=== PATIENT | male | born 1980 | race Caucasian/White ===

== ENCOUNTER 2025-03-23 08:51 | Outpatient (REF) | payer MEDICAID, SELFPAY ==
--- OUTSIDE RECORDS SUMMARY | 2025-03-20 14:00 | XMS_ITS | Encounter Summary ---
Author Organization [employer] Address [address] [facility] 7 [place] [address] Care Team Providers Care Fruit Inspector Name Role Phone Chris Hernandez CNP Primary Care Provider [phone] [phone] Reason for Referral * Consultation (Routine) - Pending Review Specialty Diagnoses / Procedures Referred By Paxton garcias Referred To Contact Gastroenterology Diagnoses Encounter for screening for malignant neoplasm of colon Chris Hernandez CNP [address] [place] [address] Phone: tel: fax: Referral ID Status Reason Start Date Expiration Date Visits Requested Visits Authorized [id number] Pending Review Specialty Services Required 03/20/2026 1 1 Encounter Details Date Type Department Care Team (Late st Contact Info) Description 03/20/2025 2:00 PM EDT Office Visit [facility] [address] [place] [address] Chris Hernandez CNP [address] [place] [address] Encounter for physical examination (Primary Dx); Chronic pain of both shoulders; Encounter for screening for malignant neoplasm of colon; Mild intermittent asthma without complication Social History Tobacco Use Types Packs/Day Years Used Date Smoking Tobacco: Every Day Cigarettes 2 32 Passive Smoke Exposure: Current Smokeless Tobacco: Never Tobacco Cessation:Ready to Q uit: Not Asked; Counseling Given: Not Answered Depression Answer Date Recorded Patient Health Questionnaire-9 Score 0 03/20/2025 Patient Health Questionnaire-9 Score 0 03/20/2025 Last PHQ-9: Questionnaire Data Not on file 1 Housing Stability Answer Date Recorded What is your housing situation today? I have adilene figueroa 03/12/[address] you li ve. Do you have problems with any of the following? None of the above 03/12/2025 Food Insecurity Answer Date Recorded Within the past 12 months, y ou worried that your food would run out before you got money to buy more: Never True 03/20/2025 Within the past 12 months,th e food you bought just didn't last and you didn't have enough money to get more: Never True Transportation Answer Date Recorded In the past 12 months, has l ack of transportation kept you from medical appts, meetings, work or from getting things needed for daily living? No 03/12/2025 Utilities Answer Date Recorded In the past 12 months, has t he electric, gas, oil or water company threatened to shut off services in your home? No 03/12/2025 Depression Answer Date Recorded Patient Health Questionnaire-2 Score 0 03/20/2025 Internet Access Answer Date Recorded Internet Access Q1 Yes 03/12/2025 Internet Access Q2 Not on file 03/12/2025 Sex and Gender Information Value Date Recorded Sex Assigned at Male 02/18/2025 9:37 AM EDT Legal Sex Male 9:36 AM EDT Gender Identity Male 03/20/2025 1:34 PM EDT Sexual Orientation Straight 03/20/2025 1: 34 PM EDT documented as of this encounter Last Filed Vital Signs Vital Sign Reading Time Taken Comments Blood Pressure 118/68 03/20/2025 2:01 PM EDT Pulse 70 03/20/2025 2:01 PM EDT Temperature 36.7 C (98.1 F) 03/20/2025 2:01 PM EDT Respiratory Rate 14 03/20/2025 2:01 PM EDT Oxygen Saturation 98% 03/20/2025 2:01 PM EDT Inhaled Oxygen Concentration - - Weight 113 kg (250 lb) 03/20/2025 2:01 PM EDT Height 169.9 cm (5' 6.88 ) 03/20/2025 2:01 PM ED T Body Mass Index 39.3 03/20/2025 2:01 PM EDT documented in this encounter Functional Status * Over the past 2 weeks, how often have you been bothered by any of the following problems? Question Answer Date of Assessment Author Patient Health Questionnaire -2 Score 0 03/20/2025 3:52 PM EDT Johnny Padilla MA * Little interest or pleasure in doing things Answer Date of Assessment Author Not at all 03/20/2025 3:52 PM EDT Bradley-Co Nani abebe MA * Feeling down, depressed, or hopeless Answer Date of Assessment Author Not at all 03/20/2025 3:52 PM EDT Bradley-Co Nani abebe MA * Trouble falling or staying asleep, or sleeping too much Answer Date of Assessment Author Not at all 03/20/2025 3:52 PM EDT Bradley-Co Nani abebe MA * Feeling tired or having little energy Answer Date of Assessment Author Not at all 03/20/2025 3:52 PM EDT Bradley-Co Nani abebe MA * Poor appetite or overeating Answer Date of Assessment Author Not at all 03/20/2025 3:52 PM EDT Bradley-Co Nani abebe MA * Feeling bad about yourself - or that you are a failure or have let yourself or your family down Answer Date of Assessment Author Not at all 03/20/2025 3:52 PM EDT Bradley-Co Nani abebe MA * Trouble concentrating on things, such as reading the newspaper or watching television Answer Date of Assessment Author Not at all 03/20/2025 3:52 PM EDT Bradley-Co Nani abebe MA * Moving or speaking so slowly that other people could have noticed? Or the opposite - being so fidgety or restless that you have been moving around a lot more than usual. Answer Date of Assessment Author Not at all 03/20/2025 3:52 PM EDT Bradley-Co Nani abebe MA * Thoughts that you would be better off or hurting yourself in some way Answer Date of Assessment Author Not at all 03/20/2025 3:52 PM EDT Bradley-Co Nani abebe MA * Patient Health Questionnaire-9 Score Answer Date of Assessment Author 0 03/20/2025 3:52 PM EDT Bradley-Co Nani abebe MA * Over the last 2 weeks, how often have you been bothered by any of the following problems? Question Answer Date of Assessment Author Feeling nervous, anxious, or on edge 0 03/20/2025 3:52 PM EDT Johnny Padilla MA Not being able to stop or control worrying 0 03/20/2025 3:52 PM EDT Johnny Padilla MA Worrying too much about different things 0 03/20/2025 3:52 PM EDT Johnny Padilla MA Trouble relaxing 0 03/20/2025 3:52 PM EDT Nani Orellana MA Being so restless that it is hard to sit still 0 03/20/2025 3:52 PM EDT Johnny Padilla MA Becoming easily annoyed or irritable 0 03/20/2025 3:52 PM EDT Johnny Padilla MA Feeling afraid as if somethi ng awful might happen 0 03/20/2025 3:52 PM EDT Johnny Padilla MA MARTHA-7 Total Score 0 03/20/2025 3:52 PM EDT Nani Padilla MA documented as of this encounter Progress Notes * Chris Hernandez CNP - 03/20/2025 2:00 PM EDT Subjective: Henry Thorne is a 45 y.o. male who presents to the office for a new patient visit. Previous PCP unknown. Interim History: -reports history of Hep C 8 years ago in which he was treated for. Current concerns: none Problem List[1] Surgical History[2] Family History[3] Social History Living situation: Lives with Employment/Education: not employed Substance use: -alcohol none -tobacco 2 PPD, not interested in quitting at this time. -opioids none Sexual activity: monogamous AFAB partner Mental health: No data recorded Allergies[4] Review of Systems Vitals: 03/20/25 1401 BP: 118/68 BP Location: Left arm Patient Position: Sitting BP Cuff Size: Large adult Pulse: 70 Resp: 14 Temp: 98.1 ??F (36.7 ??C) TempSrc: Oral SpO2: 98% Weight: 250 lb (113 kg) Height: 5' 6.88 (1.699 m) Physical Exam Vitals reviewed. Constitutional: General: He is not in acute distress. Appearance: Normal appearance. He is not ill-appearing, toxic-appearing or diaphoretic. HENT: Head: Normocephalic and atraumatic. Cardiovascular: Rate and Rhythm: Normal rate and regular rhythm. Pulses: Normal pulses. Heart sounds: Normal heart sounds. No murmur heard. No friction rub. No gallop. Pulmonary: Effort: Pulmonary effort is normal. No respiratory distress. Breath sounds: Normal breath sounds. No stridor. No wheezing, rhonchi or rales. Chest: Chest wall: No tenderness. Musculoskeletal: Right shoulder: Tenderness present. No swelling, deformity, effusion or laceration. Normal range ofmotion. Left shoulder: No swelling, deformity, effusion or laceration. Normal range of motion. Right lower leg: No edema. Left lower leg: No edema. Comments: Tenderness to palpation over R supraspinatus area ROM intact of both shoulders although reported pain with abduction Neurological: General: No focal deficit present. Mental Status: He is alert and oriented to person, place, and time. Mental status is at baseline. Psychiatric: Mood and Affect: Mood normal. Behavior: Behavior normal. Thought Content: Thought content normal. Judgment: Judgment normal. Assessment & Plan Encounter for physical examination 1. Anticipatory guidance discussed. Specific topics reviewed: drugs, ETOH, and tobacco, importance of regular dental care, importance of regular exercise, importance of varied diet, minimize junk food, and sex; STD and prevention as appropriate. 2. Age appropriate screenings discussed 3. Pt declines all due immunizations today Routine Screening and Health Maintenance Optometry: No placed appointment request today Dental: Yes ASCVD risk: 45 y.o. male smoker obese Lab Review: orders written for new lab studies as appropriate; see orders Routine Cancer Screening Colon CA: due Lung CA: will offer starting at age 50 PSA: not indicated at this time Orders: Hemoglobin A1c; Future Lipid Panel, Standard; Future CBC auto differential; Future Comprehensive Metabolic Panel; Future HIV-1/2 Antigen and Antibodies, Fourth Generation, with Reflexes; Future Chronic pain of both shoulders Pain more prevalent in R shoulder Likely rotator cuff tendinopathy (supraspinatus) based on PE and presenting symptoms Will obtain baseline XR of both shoulders Advised conservative therapy with nsaids, ice, heat,rest Offered PT, pt declined Orders: XR Shoulder 2+ Views Left; Future XR Shoulder 2+ Views Right; Future Encounter for screening for malignant neoplasm of colon Orders: Referral to Gastroenterology; Future Mild intermittent asthma without complication Encouraged smoking cessation Will send prescription for albuterol prn for SOB, wheezing Discussed instructions for use and advised pt to rtc if inhaler use exceeds 3x daily as symptoms not controlled. Orders: albuterol 108 (90 Base) MCG/ACT inhaler; Inhale 2 puffs every 4 (four) hours if needed for wheezing. Current Medications[5] Immunization History Administered Date(s) Administered Influenza, IIV3, injectable 03/26/2014, 05/24/2016 Pfizer Covid-19 Vaccine 12+ 02/20/2021, 03/13/2021 Tdap 05/24/2016 Follow up for new or worsening conditions. [1] There is no problem list on file for this patient. [2] No past surgical history on file. [3] Family History Problem Relation Name Age of Onset Diabetes Mother Diabetes Father [4] No Known Allergies [5] Current Outpatient Medications Medication Sig Dispense Refill albuterol 108 (90 Base) MCG/ACT inhaler Inhale 2 puffs every 4 (four) hours if needed for wheezing.18 g 0 No current facility-administered medications for this visit. documented in this encounter Plan of Treatment Scheduled Orders Name Type Priority Associated Diagnoses Orde r Schedule Hemoglobin A1c Lab Routine Encounter for physical examination Expected: 03/20/2025 (Approximate), Expires: 03/20/2026 Lipid Panel, Standard Lab Routine Encounter for physical examination Expected: 03/20/2025 (Approximate), Expires: 03/20/2026 CBC auto differential Lab Routine Encounter for physical examination Expected: 03/20/2025 (Approximate), Expires: 03/20/2026 Comprehensive Metabolic Panel Lab Routine Encounter for physical examination Expected: 03/20/2025 (Approximate), Expires: 03/20/2026 HIV-1/2 Antigen and Antibodies, Fourth Generation, with Reflexes Lab Routine Encounter for physical examination Expected: 03/20/2025 (Approximate), Expires: 03/20/2026 XR Shoulder 2+ Views Left Imaging Routine Chronic pain of both shoulders Expected: 03/20/2025, Expires: 03/20/2026 XR Shoulder 2+ Views Right Imaging Routine Chronic pain of both shoulders Expected: 03/20/2025, Expires: 03/20/2026 Scheduled Referrals Name Type Priority Associated Diagnoses Order Schedule Referral to Gastroenterology Outpatient Referral Routine Encounter for screening for malignant neoplasm of colon Expected: 03/20/2025 (Approximate), Expires: 03/20/2026 documented as of this encounter Visit Diagnoses Diagnosis Encounter for physical examination- Primary Chronic pain of both shoulders Encounter for screening for malignant neoplasm of colon Mild intermittent asthma without complication documented in this encounter Additional Health Concerns Assessment Noted Time PHQ-9 Depression Total Score: 0 03/20/20 3:52 PM EDT documented as of this encounter Care Teams Fruit Inspector Relationship Specialty Start Date End Date Chris Hernandez CNP [address] [place] [address] PCP - General Family Medicine 03/20/25 documented as of this encounter
--- OUTSIDE RECORDS SUMMARY | 2025-03-23 10:00 | XMS_ITS | Encounter Summary ---
Author Organization [facility] Address [address] [facility] 7[address] [place] [address] Care Team Providers Care Radio Electronics Technician Name Role Phone Chris Hernandez CNP Primary Care Provider [phone] Reason for Visit * Reason Onset Date Comments Appointment Request 02/18/2025 Encounter Details Date Type Department Care Team ([facility] st Contact Info) Description 02/18/2025 Telephone [facility] [address] [place], [place] [phone] Albin Alarcon MD [address] [place] [address] Appointment Request Social History Tobacco Use Types Packs/Day Years Used Date Smoking Tobacco: Never Assessed Sex and Gender Information Value Date Recorded Sex Assigned at Male 02/18/2025 9:37 AM EDT Legal Sex Male 9:36 AM EDT Gender Identity Male 03/20/2025 1:34 PM EDT Sexual Orientation Straight 03/20/2025 1: 34 PM EDT documented as of this encounter Miscellaneous Notes * Telephone Encounter - Sandra Maurer - 02/18/2025 9:40 AM EDT TC from caller requesting NEW PATIENT visit . DX : N/A Medical Concern: 4 y.o with out a doctor Insurance name : [employer] Location : [place] Demographic information updated documented in this encounter Plan of Treatment Not on file documented as of this encounter Visit Diagnoses Not on filedocumented in this encounter Care Teams Radio Electronics Technician Relationship Specialty Start Date End Date Chris Hernandez CNP [address] [place] [address] PCP - General Family Medicine 03/20/25 documented as of this encounter
--- OUTSIDE RECORDS SUMMARY | 2025-03-23 10:00 | XMS_ITS | Clinical Summary ---
Author Organization [employer] Address [address] [facility] [address] [place] [address] Care Team Providers Care Process Improvement Consultant Name Role Phone Chris Hernandez CNP Primary Care Provider [phone] Allergies No known active allergies Medications albuterol 108 (90 Base) MCG/ACT inhalerIndication s:Mild intermittent asthma without complication Inhale 2 puffs every 4 (four) hours if needed for wheezing. 18 g 03/20/2025 03/20/20 26 Active Active Problems No known active problems Encounters Date Type Department Care Team Description 03/20/2025 2:00 PM EDT Office Visit [facility] [address] [place] [address] Chris Hernandez CNP Encounter for physical examination (Primary Dx); Chronic pain of both shoulders; Encounter for screening for malignant neoplasm of colon; Mild intermittent asthma without complication 03/20/2025 Travel 03/19/2025 Telephone [facility] [address] [place] [address] Lashanda Adrian MA Chart Prep 03/12/2025 Patient Outreach [facility] [address] [place] [phone] Chris Hernandez CNP Care Coordination ([facility] outreach for SDOH housing search-LVM ) 03/12/2025 Patient Outreach [address] [address] Albin Alarcon MD Pre-visit Planning (SDOH screening positive and Tobacco screening positive) 02/18/[address] [address] Albin Alarcon MD Appointment Request from Last 3 Months Immunizations Immunization Administration Dates Next Due Influenza, IIV3, injectable 05/24/2016, 4 Tdap 05/24/2016 Family History Medical History Relation Name Comments Diabetes Father Diabetes Mother Relation Name Status Comments Father Mother Social History Tobacco Use Types Packs/Day Years [...] Orientation Straight 03/20/2025 1: 34 PM EDT Last Filed Vital Signs Vital Sign Reading [...] Mass Index 39.3 03/20/2025 2:01 PM EDT Plan of Treatment Health Maintenance Due Date Last Done Comments CT Colonography 1979 Colonoscopy 1979 Colorectal Cancer Screening 1979 FIT DNA/Cologuard 1979 FIT 1979 FOBT 1979 HIV Screening 1979 Lipid Panel 1979 Sigmoidoscopy 1979 Family Planning (PISQ) 1994 Hepatitis C Screening 1997 Hepatitis B Vaccines (1 of 3 - 19+ 3-dose series) 1998 Pneumococcal Vaccine: Pediatrics (0 to 5 Years) and At-Risk Patients (6 to 49) Years (1 of 2 - PCV) 1998 COVID-19 Vaccine (3 - 2024-2 6 season) 2025 03/13/2021, 02/20/2021 Influenza Vaccine (#1) 2025 6, 03/26/2014 Alcohol/Substance Use Screening 03/20/2026 03/20/2025 Depression Screening 03/20/2026 03/20/2025, 03/20/2025 Disability Screening 03/20/2026 03/20/2025 SDOH Screening 03/20/2026 03/20/2025 Tobacco Screening 03/20/2026 03/20/2025 DTaP/Tdap/Td Vaccines (2 - T d or Tdap) 05/24/2026 05/24/2016 Zoster Vaccines (1 of 2) 2029 RSV Patients and Patients Aged 60 years or older (1 - 1-dose 75+ series) 2054 HIB Vaccines Aged Out No longer eligi ble based on patient's age to complete this topic HPV Vaccines Aged Out No longer eligi ble based on patient's age to complete this topic Hepatitis A Vaccines Aged Out No long er eligible based on patient's age to complete this topic IPV Vaccines Aged Out No longer eligi ble based on patient's age to complete this topic Meningococcal B Vaccine Aged Out No l onger eligible based on patient's age to complete this topic Meningococcal Vaccine Aged Out No mis felicity eligible based on patient's age to complete this topic RSV under 20 months Aged Out No longe r eligible based on patient's age to complete this topic Rotavirus Vaccines Aged Out No longer eligible based on patient's age to complete this topic Insurance [employer] Care Teams Process Improvement Consultant Relationship Specialty Start Date End Date Chris Hernandez CNP [address] [place] [address] PCP - General Family Medicine 03/20/25
--- OUTSIDE RECORDS SUMMARY | 2025-03-23 10:01 | XMS_ITS | Encounter Summary ---
Author Organization [employer] Address [address] [facility] [address] [place] [address] Care Team Providers Care Bar Tender Name Role Phone Chris Hernandez CNP Primary Care Provider [phone] Encounter Details Date Type Department Care Team (Latest Contact Info) Description 03/20/2025 Travel Social History Tobacco Use Types Packs/Day Years Used Date Smoking Tobacco: Every Day Cigarettes 2 32 Passive Smoke Exposure: Current Smokeless Tobacco: Never Depression Answer Date Recorded Patient Health Questionnaire-9 [...] PM EDT documented as of this encounter Functional Status * Over the [...] Not at all 03/20/2025 3:52 PM EDT Mirna-Co Nani abebe MA * Trouble falling or [...] control worrying 0 03/20/2025 3:52 PM EDT Jonhny Padilla MA Worrying too much about different things 0 03/20/2025 3:52 PM EDT Johnny Padilla MA Trouble relaxing 0 03/20/2025 3:52 PM EDT D Nani Downey MA Being so restless that it is hard to sit still 0 03/20/2025 3:52 PM EDT Johnny Padilla MA Becoming easily annoyed or irritable 0 03/20/2025 3:52 PM EDT Mirna-Johnny Durbin MA Feeling afraid as if somethi ng awful might happen 0 03/20/2025 3:52 PM EDT Johnny Padilla MA MARTHA-7 Total Score 0 03/20/2025 3:52 PM EDT Nani Padilla MA documented as of this encounter Plan of Treatment Not on file documented as of this encounter Visit Diagnoses Not on filedocumented in this encounter Additional Health Concerns Assessment Noted Time PHQ-9 Depression Total Score: 0 03/20/20 3:52 PM EDT documented as of this encounter Care Teams Bar Tender Relationship Specialty Start Date End Date Chris Hernandez CNP [address] [place] [address] [place]DOX [address] PCP - General Family Medicine 03/20/25 documented as of this encounter
--- OUTSIDE RECORDS SUMMARY | 2025-03-23 10:01 | XMS_ITS | Encounter Summary ---
Author Organization [employer] Address [address] [facility] 7[address] [place] [address] Care Team Providers Care Sql Etl Developer Name Role Phone Unavailable Primary Care Provider Unavailabl e Reason for Visit * Reason Onset Date Comments Chart Prep 03/19/2025 Encounter Details Date Type Department Care Team ([facility] st Contact Info) Description 03/19/2025 Telephone [facility] [address] [place] [address] Lashanda Adrian MA Chart Prep Social History Tobacco Use Types Packs/Day Years Used Date Smoking Tobacco: Never Assessed Depression Answer Date Recorded Patient Health Questionnaire-9 [...] encounter Miscellaneous Notes * Telephone Encounter - Lashanda Adrian MA - 03/19/2025 11:35 AM EDT Chart Prep Labs: not applicable Images: not applicable Referrals: not applicable Vaccines due: Covid, Flu, Tdap, and Hep B Screenings: colonoscopy and STI screening Overdue care gaps: SBIRT, PHQ-9, Disability screen, and Tobacco documented in this encounter Plan of Treatment Not on file documented as of this encounter Visit Diagnoses Not on filedocumented in this encounter
[2025-03-23 14:39] LABS: MANUAL DIFF FLAG NO
[2025-03-23 14:54] LABS: Hematocrit 45.4 % (42.0-52.0); Hemoglobin 14.7 g/dl (14.0-18.0); Imm Gran Abs Auto 0.02 X10*3/uL (0.00-0.03); Imm Gran Pct Auto 0.3 % (0.0-0.4); Lymphocytes Absolute Auto 2.2 X10*3/uL (1.2-4.9); Mean Corpuscular HGB Conc 32.4 g/dl (31.0-36.0); Mean Corpuscular Hemoglobin 29.5 pg (27.0-33.0); Mean Corpuscular Volume 91.2 fL (80.0-98.0); NRBC Abs Auto 0.000 X10*3/uL (0.0-0.012); NRBC Pct Auto 0.0 /100WBC (0.0-0.2); Platelet Count 174 X10*3/uL (160-400); Red Blood Count 4.98 X10*6/uL (4.60-5.80); White Blood Count 6.2 X10*3/uL (4.8-10.8)
[2025-03-23 15:15] LABS: Alanine Aminotransferase 23 U/L (0-40); Albumin Level 4.3 g/dL (3.5-5.0); Alkaline Phosphatase 77 U/L (39-117); Anion Gap 10 (12-20); Aspartate Amino Transferase 28 U/L (5-37); Blood Urea Nitrogen 15 mg/dL (9-16); Calcium 9.0 mg/dL (8.4-10.2); Carbon Dioxide 23 mmol/L (22-29); Chloride 110 mmol/L (96-108); Cholesterol 173 mg/dL (<200); Estimated Glomerular Filt Rate > 60; HDL Cholesterol 38 mg/dL (>40); Potassium 4.3 mmol/L (3.3-5.1); Sodium 139 mmol/L (135-145); Total Protein 7.0 g/dL (6.5-8.0); Triglycerides 85 mg/dL (<150)
[2025-03-23 15:18] LABS: Hemoglobin A1C 141.2847 umol/L; Total Hemoglobin (HGBA1C) 3911.6997 umol/L
[2025-03-24 12:26] LABS: HIV Num 1 0.04 S/CO (0.00-0.99)
== END 2025-03-23 08:52 | disposition home or self-care (01) ==
LOC: HO.CHCLDS 08:51
DX: Z00.00 Encounter for general adult medical examination without abnormal findings (principal); Z11.4 Encounter for screening for human immunodeficiency virus [HIV]
CPT/HCPCS: 36415; 80053; 80061; 83036; 85025; 87389